=== PATIENT | female | born 2000 | race Caucasian/White ===

== ENCOUNTER 2020-07-13 10:03 | Emergency (ER) | payer OTHER, SELFPAY ==
[2020-07-13 10:05] VITALS: BP 135/80; PULSE 71; RESP 16; TEMP 35.5; O2SAT 94; BMI 22.2
[2020-07-13 10:06] VITALS: BP 135/80; PULSE 71; RESP 16; TEMP 35.5; O2SAT 94
--- NOTE | 2020-07-13 10:39 | ED.DCSUM_ITS ---
- ER Visit Summary Date of Service: 07/13/20 Chief Complaint: Shortness of breath History of Present Illness: The patient is a 20 F who presents with shortness of breath that began yesterday. Patient states it is only with exertion. Patient states she is not short of breath at rest. Patient states she had a 10-hour car ride recently. Patient tested positive for COVID-19 5 days ago. Patient states she has pain in her left upper chest that radiates into her back. Patient describes it as heaviness. Patient admits to a cough but denies any sputum production. Patient also admits to a sore throat. Patient denies any fevers or chills. Physical Examination: Vital signs are stable. Patient is afebrile. Patient is in no acute distress. Oral mucosa is pink and moist. Neck is supple. Trachea is midline. There is no JVD. Heart was regular rate and rhythm. Lungs are clear and equal bilaterally. Abdomen is soft. Bowel sounds are normal. There is no tenderness. Extremities are intact. There is no calf tenderness or edema. Cranial nerves II through XII are intact. There are no focal motor or sensory deficits. Test Results: CBC, comprehensive metabolic profile, and D-dimer were obtained were all within normal limits. Portable 1 view chest x-ray was obtained. On my interpretation, there is a left perihilar infiltrate. There is normal cardiac silhouette. Bony thorax is normal. Radiologist also interpreted the x-ray. He did not feel there was a left perihilar infiltrate. Emergency Department Course and Treatment: Patient was advised that her symptoms may be related to her COVID-19. Patient was given albuterol inhaler here. Patient was instructed to use this as needed. Patient was instructed to take Tylenol or ibuprofen as needed for any pain. Patient was instructed to follow-up with her primary care physician in 5 to 7 days. Patient understood and was agreeable with the plan. All questions were answered. Disposition: Discharge home Impression: 1. COVID-19 This note was generated with [employer] dictation software. It may contain incorrect words, spelling, and punctuation that were not noted in review of the chart prior to signing ED Disposition - Plan for ED Patient: Disposition: Home or Assisted Living Diagnosis: COVID-19 Instructions: Coronavirus Disease 2019 (COVID-19): Overview Referrals: NOT,DEFINED [NON-STAFF] - 5-7 Days Additional Instructions: You may use Tylenol or ibuprofen as needed for pain or fever. Use the albuterol inhaler as needed for shortness of breath.
[2020-07-13 11:04] VITALS: O2SAT 99
[2020-07-13 11:14] LABS: Absolute Neutrophil Count 2.9 X10^3/uL (2.0-7.7); Basophil# 0.06 X10^3/uL; Basophil% 1.2 % (0-1); Lymphocyte % 32.2 % (19-41); Mean Corp Hgb Conc 32.6 g/dL (32-36); Mean Corpuscular Hgb 29.5 pg (27.0-32.0); Mean Corpuscular Volume 90.7 fL (81-99); Monocyte# 0.31 X10^3/uL; Monocyte% 6.2 % (0-10); NRBC Flagged by Analyzer 0 % (0-5); Neutrophil # 2.89 X10^3/uL (2.7-7.7); Neutrophil % 58.2 % (47-70); Platelet Count 213 K/mm3 (150-450); RBC Distribution Width CV 12.3 % (11.6-14.6); RBC Distribution Width SD 40.5 fl (35.1-43.9); Red Blood Count 4.74 M/mm3 (4.2-5.4)
[2020-07-13 11:29] LABS: ALB/GLOB Ratio 1.2 RATIO (0.9-2.4); AST(SGOT) 9 U/L (15-37); Alanine Aminotransfer ALT/SGPT 22 U/L (13-56); Albumin, Serum 4.3 g/dL (3.2-5.0); Alkaline Phosphatase 84 U/L (45-117); Anion Gap 3 (5-15); BUN 10 mg/dL (7-18); BUN/Creat Ratio 13.8 RATIO (10-20); Calcium,Total 8.9 mg/dL (8.5-10.1); Chloride 108 mmol/L (98-107); Creatinine, Serum 0.72 mg/dL (0.55-1.02); EST Glomerular Filtration Rate 106 mL/min (>60); Est Glom Filt Rate - Afr Amer 129 mL/min (>60); Estimated Creatinine Clearance 114.73 ml/min; Globulin 3.5 g/dL (2.2-4.2); Glucose 96 mg/dL (74-106); Protein, Total 7.8 g/dL (6.4-8.2); Sodium Level 139 mmol/L (136-145)
[2020-07-13 11:34] LABS: D-Dimer Quantitative (DVT/PE) <= 0.27 FEU/ug/m (0.27-0.49)
--- NOTE | 2020-07-13 11:45 | RAD_ITS ---
STUDY: X-RAY CHEST REASON FOR EXAM: Female, 20 years old. COVID + ON THURSDAY, SOB WITH ACTIVITY, HEAVINESS IN CHEST TO BACK. TECHNIQUE: Single AP portable view of the chest. COMPARISON: None. FINDINGS: The lungs are clear and expanded. There is no demonstrated pleural abnormality. Normal size heart. Normal mediastinum and beto. Normal visualized pulmonary arteries. Normal visualized aortic arch and descending thoracic aorta. Mild degree of dextroscoliosis. Normal visualized ribs, clavicles, and shoulders. There is no demonstrated abnormality of the visualized soft tissue structures of the upper abdomen. RAD/Chest 1 View (Portable) IMPRESSION: The lungs are clear. Mild dextroscoliosis. Electronically Signed: Timoteo Santiago MD at 12:09 EST , Service support ,
[2020-07-13 12:45] VITALS: PULSE 61; RESP 18; TEMP 37.1; O2SAT 99
== END 2020-07-13 13:07 | disposition home or self-care (01) ==
PROVIDERS: Emergency Provider Emergency Medicine; PCP Pediatrics
DX: U07.1 COVID-19 (principal)
CPT/HCPCS: 71045; 80053; 85025; 85379; 94640; 99284